=== PATIENT | male | born 1955 | race Caucasian/White ===

== ENCOUNTER 2019-01-26 12:08 | Inpatient (IN) | payer OTHER ==
[~2019-01-26] VITALS: Ht 180.3 cm; Wt 80.0 kg
[2019-01-26 12:12] VITALS: Ht 180.3 cm; Wt 80.0 kg
--- NOTE | 2019-01-26 12:15 | NUR ---
EKG IN PROGRESS
--- NOTE | 2019-01-26 12:15 | NUR ---
MD ROCA AT BEDSIDE PERFORMING MSE
--- NOTE | 2019-01-26 12:15 | NUR ---
PT BIB AMBULANCE FROM [facility] WITH C/O UNWITNESSED SEIZURE SURVEY CREW CHIEF, PER MEDICS PT WAS FOUND ON CEMENT FLOOR WITH ALOC, CIM ADMIN 2MG ATIVAN IVP PRIOR TO [facility] ARRIVAL, PER PT MEDICS PT PLACED ON 3L O2 NC S/P SECOND SEIZURE IN ROUTE, TONIC CLONIC LASTING APPROX 3O SEC., MEDICS ADMIN 2.5 MG VERSED INH AND ADMIN D10 D/T HYPOGLYCEMIA, PER MEDICS PT HAS HX SEIZURES, UPON ARRIVAL PT ALOC PT LOCALIZES TO PAIN WHEN CHECKING RECTAL TEMP, PT PUPILS SLUGGISH WITH ERYTHEMA NOTED TO BILATERAL EYES, NO SPEECH NOTED AT THIS TIME, LUNGS CTA, RESPS E/U, +PULSES TO BUE AND BLE, PT FEBRILE AND MEDICATED, SEE MEDICATION PER PROTOCOL, +INCONTINENCE CLOTHES SOILED WITH URINE, PT GOWNED PLACED ON FULL CM, NSR, SEIZURE PRECAUTIONS IN PLACE, [facility] OFFICER AT BEDSIDE
--- NOTE | 2019-01-26 12:16 | NUR ---
LAC NOTED TO BOTTOM INNER LIP, BLEEDING CONTROLLED, AIRWAY PATENT
--- NOTE | 2019-01-26 12:32 | NUR ---
LAB AT BEDSIDE
--- NOTE | 2019-01-26 12:45 | NUR ---
PT HAS FEVER OF 102.6 DR ASHLEY NOTIFIED. VERBAL ORDER FOR TYLENOL GIVEN. WILL MEDICATE
--- NOTE | 2019-01-26 13:01 | NUR ---
PORTABLE CXR AT BEDSIDE
--- NOTE | 2019-01-26 13:05 | NUR ---
PT ALOC GARBLED SPEECH, PT ORIENTED TO PERSON AND PLACE, WHEN ASKED TO BIODIESEL ENGINEERING MANAGER BUE, PT WAS NOTED PT UNABLE TO BIODIESEL ENGINEERING MANAGER LEFT HAND, PT UNABLE TO MOVE LLE, NO REFLEX RESPONSE TO LEFT FOOT
--- NOTE | 2019-01-26 13:05 | NUR ---
PT ALOC GARBLED SPEECH, PT ORIENTED TO PERSON AND PLACE, WHEN ASKED TO BAD CLOTH CHECKER BUE, PT WAS NOTED PT UNABLE TO BAD CLOTH CHECKER LEFT HAND, PT UNABLE TO MOVE LLE, +BABINSKI NOTED TO LEFT FOOT, ASHLEY MADE AWARE
[2019-01-26 13:06] LABS: PLATELET COUNT 174 x10^3mcL (130-400)
--- NOTE | 2019-01-26 13:07 | NUR ---
PT TAKEN TO CT VIA TRISH ACCOMPANIED BY GRISELDA LINO
[2019-01-26 13:11] LABS: BASOPHIL % 0 % (0-2); RED CELL DISTRIBUTION WIDTH 14.9 % (11.5-14.5)
--- NOTE | 2019-01-26 13:26 | NUR ---
MD ASHLEY AT BEDSIDE SPEAKING WITH PT, PER MD ASHLEY PT DENIES ANY HX STROKE AND CIM OFFICER STS PRISONERS "USUALLY WEAR A SPECIAL VEST IF THEY CAN'T WALK RIGHT LIKE FROM A STROKE AND HE DOESN'T HAVE ONE"
[2019-01-26 13:28] LABS: ALBUMIN 3.5 g/dL (3.4-5.0); ALKALINE PHOSPHATASE 84 U/L (46-116); ALT/SGPT 67 U/L (16-63); AST/SGOT 475 U/L (15-37); BILIRUBIN TOTAL 0.9 mg/dL (0.20-1.00); CALCIUM 8.5 mg/dL (8.5-10.1); CARBON DIOXIDE 24.9 mmol/L (21-32); CHLORIDE SERUM 105 mmol/L (98-107); CREATININE SERUM 1.9 mg/dL (0.7-1.3); GFR1 38 mL/min; GLUCOSE SERUM 118 mg/dL (74-106); POTASSIUM SERUM 5.4 mmol/L (3.5-5.1); SODIUM SERUM 140 mmol/L (136-145); TOTAL PROTEIN, SERUM 7.1 g/dL (6.4-8.2)
--- NOTE | 2019-01-26 13:59 | NUR ---
LAB AT BEDSIDE
--- NOTE | 2019-01-26 14:06 | NUR ---
LAB UNABLE TO DRAW BLOOD FOR BLOOD CULTURE, MD ASHLEY MADE AWARE, PER MD ASHLEY VERBAL ORDER ADMIN AX WITHOUT BLOOD CULTURES AT THIS TIME
--- NOTE | 2019-01-26 14:13 | NUR ---
VERBAL OKAY DR. ASHLEY TO START ROCEPHIN PRIOR TO BC DRAWN. LAB NOT ABLE TO PULL BLOOD, DR. ASHLEY MADE AWARE.
[2019-01-26 14:33] LABS: AMPHETAMINE QUAL UR NONE DETECTED (See below)
--- NOTE | 2019-01-26 14:49 | NUR ---
NEURO CONSULT COMP PLACED IN PT RM PER MD ORDER
--- NOTE | 2019-01-26 14:53 | NUR ---
PT AWAKE AND ALERT, PT GARBLED SPEECH AT THIS TIME, WHEN ASKED IF PT REMEMBERED WHAT HAPPENED HE STATED "I HAD A STROKE" I ASKED HIM "WHAT MAKES YOU THINK THAT IF YOU SAID YOU NEVER HAD ONE BEFORE" PT REPLIED "I FELT DIZZY" PT REPORTS BEGAN AROUND 1000 THIS AM, MD ASHLEY MADE AWARE
--- NOTE | 2019-01-26 14:55 | NUR ---
NEURO CONSULT IN PROGRESS
--- NOTE | 2019-01-26 14:56 | NUR ---
DURING NEURO CONSULT, PT ASKED TO MOVE LUE, PT LIFTED HIS RUE, PT ASKED TO MOVE LLE AND FLEX HIS LEFT FOOT, PT UNABLE TO DO THEY STATING "I CAN'T" MD ASHLEY MADE AWARE
--- NOTE | 2019-01-26 15:11 | NUR ---
PT NOTED TO BE MOVING LUE HOWEVER WHEN ASKED TO NEUROLOGY TEACHER LEFT HAND, PT UNABLE TO DO SO
--- NOTE | 2019-01-26 15:33 | NUR ---
PT REPORTS HX PNEMONIA, PT FEBRILE, MD ASHLEY MADE AWARE OF PT TEMP
--- NOTE | 2019-01-26 16:34 | NUR ---
VANCO INFUSING PER EMAR AND MD ORDER, VSS, NSR ON CM, CIM OFFICERS AT BEDSIDE
--- NOTE | 2019-01-26 17:42 | NUR ---
UPON ENTERING PT ASLEEP BUT [place], PT AAOX4, RESPS E/U, NSR ON CM. PT IN NAD, CIM OFFICERS AT BEDSIDE
[2019-01-26] MEDS ORDERED: [UNRECOGNIZED DRUG - CODE] (17:59)
[2019-01-26] MEDS ORDERED: FLOMAX0.4 MG PO (18:00)
[2019-01-26] MEDS ORDERED: COLACE100 MG PO (18:01)
[2019-01-26] MEDS ORDERED: COUMADIN1 MG (18:01)
[2019-01-26] MEDS ORDERED: REM15 PO (18:01)
[2019-01-26] MEDS ORDERED: KEPPRA500 MG PO (18:01)
[2019-01-26] MEDS ORDERED: VIS50 PO (18:02)
[2019-01-26] MEDS ORDERED: FLUOXETINE HYDR20 M2 PO (18:02)
[2019-01-26] MEDS ORDERED: [UNRECOGNIZED DRUG - CODE] SQ (18:03)
[2019-01-26 18:23] LABS: CHOLESTEROL/HDL RATIO 3.2
--- NOTE | 2019-01-26 18:41 | NUR ---
PT RESTING IN POSITION OF COMFORT RESPS E/U, VSS, NSR ON CM, CIM OFFICERS AT BEDSIDE
--- NOTE | 2019-01-26 19:27 | NUR ---
REPORT GIVEN TO ZAINAB RN, ICU, TO RESUME CARE OF PT UPON ADMISSION, SHE IS AWARE TO MONITOR RECTAL TEMP
[2019-01-26 19:47] VITALS: BP 139/69
--- NOTE | 2019-01-26 19:58 | NUR ---
PT TRANSFERRED TO ICU ACCOMPANIED BY NURSE, EMT AND GAURDS. NO S/S OF DISTRESS. RESP E/U. PT CONNECTED TO MONITOR DURIN TRANSFER. IV SITES PATENT, NO S/S OF INFILTRATION.
--- NOTE | 2019-01-26 20:04 | NUR ---
PT TRANSFERRED FROM ER VIA GURNEY ACCOMPANIED BY RN AND EMT. PT TRANSFERRED TO ICU BED WITH FULL ASSIST. PT LETHARGIC BUT AROUSABLE. PT ORIENTED TO PERSON, BIRTHDATE, AND TIME). PT VERBALLY AND PHYSICALLY AGGRESSIVE WHEN AWAKE. PERRLA NOTED, PUPILS 4MM SLUGGISH CONOR. NO SEIZURE ACTIVITY AT THIS TIME. SEIZURE PRECAUTIONS IN PLACE. EENT FREE OF DISCHARGE. RESPS E/U ON ROOM AIR. LUNG SOUNDS CTA. CHEST RISE EQUAL AND SYMMETRICAL. POTATO BUCKER IN PLACE SHOWING NSR WITH HR 83, BP 136/66 MAP 89. CHEST WALL STABLE. DENIES ANY CP, SYNCOPE, OR DIZZINESS. PULSES PALPABLE X4 EXTREMITIES BUT WEAK. NO EDEMA NOTED. CAP REFILL < 3 SECS. IV TO LAC INTACT AND PATENT. IVF NS INFUSING @ 100ML/HR. GEN WEAKNESS NOTED. TURNED AND REPOSTIONED Q2H FOR PRESSURE RELIEF. ABD ROUND, SOFT, NONTENDER TO TOUCH. BOWEL SOUNDS ACTIVE. PTS INCONTINENT. GOOD DIMITRI CARE PROVIDED. NO SCROTAL EDEMA OR BLEEDING NOTED. BLE SCATTERED ABRASION, MARQUISE. LOWER LIP ABRASION, SPECIAL EDUCATION CLASSROOM AIDE. PT FROM [facility]. PT VERBALLY AND PHYSICALLY AGGRESSIVE WHEN AWAKE. 2 CIM GUARDS AT BEDSIDE. HOB KEPT ELEVATED. FALL PRECAUTIONS APPLIED AND MAINTAINED. WILL CONTINUE TO MONITOR.
[2019-01-26 21:13] VITALS: BP 136/66
--- NOTE | 2019-01-26 21:30 | NUR ---
ATTEMPTED TO GIVE PT VELTASSA ORAL MED, PT BECAME COMBATIVE ATTEMPTING TO HIT AND VERBALLY AGGRESSIVE STATING "GET THE F OUT AND LEAVE ME THE F ALONE." 2 CIM GUARDS AT BEDSIDE, ASSISTED TO HOLD PT BUT PT BECAME MORE ANGRY. DR MORENO WILL BE CALLED AND MADE AWARE.
--- NOTE | 2019-01-26 22:20 | NUR ---
DR MORENO MADE AWARE PT REFUSED TO TAKE VELTASSA PO FOR K+ 5.4. NO NEW ORDERS GIVEN.
--- NOTE | 2019-01-26 22:36 | NUR ---
REPORTED TO DR FRANK REGARDING TRENDING UP TROP LEVEL 2.451, DR FRANK STATES CONTINUE WITH SAME ORDERS OF LOVENOX, METOPROLOL AND EKG IN AM.
[2019-01-26 23:31] VITALS: BP 123/69
[2019-01-27] VITALS (10 sets, daily range): BP systolic 109–148; BP diastolic 49–82
--- NOTE | 2019-01-27 00:02 | NUR ---
PT SOILED WITH URINE AND LOOSE STOOL. URINE NOTED ALL OVER FLOOR, HOUSEKEEPING CALLED. F/C INSERTED AT THIS TIME. 16 FR F/C INSERTED AT EASE, 800ML BLOOD TINGED URINE NOTED. FLEXI SEAL PLACED AT THIS TIME. PT AGGRESSIVE WHEN CLEANING BED AND TURNING. PT SWINGING AT NURSES AND CURSING AT EVERYONE. 2 CIM GUARDS AND 2 NURSES AT BEDSIDE HOLDING EACH LIMB. ROSSY CHARGE NURSE ASSISTED TO INSERT F/C AND FLEXISEAL.
--- NOTE | 2019-01-27 04:30 | NUR ---
OLGA FAIR TECH AT BEDSIDE ATTEMPTED TO DRAW LABS. PT BECAME COMBATIVE AND AGGRESSIVE, ATTEMPTED TO HOLD WITH 3 RNS PT BECAME MORE COMBATIVE, YELLING AND ATTEMPTING TO HIT STAFF AND CIM GUARDS.
--- NOTE | 2019-01-27 05:15 | NUR ---
ATTEMPTED TO CHECK GLUCOSE, PT BECAME VERY COMBATIVE AND AGGRESSIVE. ATIVAN IVP GIVEN. WILL CONTINUE TO MONITOR.
--- NOTE | 2019-01-27 05:35 | NUR ---
PT CALM AND SLEEPING. BLOOD GLUCOSE CHECKED AT THIS TIME, 87. 2 CIM GUARDS AT BEDSIDE.
--- NOTE | 2019-01-27 06:00 | NUR ---
24 URINE COLLECTION INITIATED AT THIS TIME. URINE BUCKET PLACED IN ICE. WILL ENDORSE TO ONCOMING RN.
--- NOTE | 2019-01-27 06:29 | NUR ---
CALLED DR MORENO, MADE AWARE PT REFUSED LAB DRAW IN AM. PT BECAME AGGRESSIVE AND COMBATIVE AND ATTEMPTED WITH ATIVAN IVP, PT STILL AGGRESSIVE. DR MORENO MADE AWARE OF DR RUBY'S ORDERS UNDER CONSULTATION PROGRESS NOTE. DR MORENO STATES TO FOLLOW ORDERS AND CHANGE DIET TO NPO UNTIL SWALLOW EVAL IS DONE BY SPEECH THERAPIST AND ORDER KEPPRA 500 MG IV BID. TELEPHONE ORDER READ BACK. ORDER NOTED AND CARRIED OUT.
--- NOTE | 2019-01-27 06:43 | NUR ---
DR FRANK (TRAVEL ADMINISTRATOR) CALLED AND MADE AWARE PT REFUSED AM LABS AND PT VERY AGGRESSIVE AND COMBATITIVE. UPDATED ON PTS CURRENT VITAL SIGNS. MADE AWARE PTS ON LOVENOX BID AND PT HAS BLEEDING FROM [facility]. TELEPHONE ORDER GIVEN TO HOLD LOVENOX AT THIS TIME. ORDER NOTED AND CARRIED OUT.
--- NOTE | 2019-01-27 07:00 | NUR ---
RECEIVED REPORT FROM ZAINAB VILLALOBOS. ALL QUESTIONS ANSWERED AND ADDRESSED. ASSUMING CARE OF PT.
--- NOTE | 2019-01-27 07:30 | NUR ---
UPON ASSESSING PT, PT COMBATIVE AND REFUSING CARE. PT STATING "GET OFF OF ME. DON'T TOUCH ME." EDUCATED PT ON THE NEED FOR ASSESSMENT AND THE IMPORTANCE OF CARE. PT STILL REFUSING AND SWUNG RIGHT ARM AT MY FACE. 2 GUILHERME AT BEDSIDE. WILL ENDORSE TO DR. MORENO. WILL CONT TO MONITOR.
--- NOTE | 2019-01-27 07:48 | NUR ---
PT TACHYCARDIC AND OXYGEN DESATTING INTO THE 70% AND HAVING A SEIZURE AT THIS TIME. DURATION OF SEIZURE WAS 45 SECONDS. ASSESSED PT'S NEURO STATUS AND WAS ABLE TO STATE HIS FIRST AND LAST NAME AND DATE OF . HOWEVER, WHEN ASKED WHAT YEAR IT IS, HE STATED IT WAS 1915. ALSO WHEN ASKED IF HE KNEW WHO THE PRESIDENT WAS, HE NODDED YES BUT STATED THAT IT WAS [place]. PT AAOX2. REMAINS COMBATIVE AND REFUSING CARE AT THIS TIME.
--- NOTE | 2019-01-27 07:50 | NUR ---
2MG ATIVAN IVP GIVEN AT THIS TIME FOR PT'S SEIZURE. WILL CONT TO MONITOR.
--- NOTE | 2019-01-27 08:12 | NUR ---
ECHOCARDIOGRAM PENDIG-COMBATIVE
--- NOTE | 2019-01-27 08:39 | NUR ---
RAZIA FROM RADIOLOGY ON UNIT TO ASSESS PT TO SEE IF ABLE TO GO TO CT. HOWEVER, PT REFUSED. RAZIA STATED THAT THEY WILL KEEP TRYING THROUGHOUT THE DAY. WILL ENDORSE TO DR. MORENO.
--- NOTE | 2019-01-27 08:54 | NUR ---
DR. HO AT BEDSIDE TO SEE AND ASSESS PT. DR. HO MADE AWARE PT COMBATIVE AND REFUSING CARE. NEW ORDERS OBTAINED FOR ZYPREXA 2.5 MG IM BID AND CHANGE IVF TO D5NS AT SAME RATE. PRIMARY RN MADE AWARE. ORDERS READBACK AND CONFIMRED.
--- NOTE | 2019-01-27 09:16 | NUR ---
PT REFUSED BLOOD DRAW THIS TIME. WILL NOTIFY DR. MORENO, PRIMARY RN MADE AWARE.
[2019-01-27 09:28] LABS: AMPHETAMINE QUAL UR NONE DETECTED (See below)
--- NOTE | 2019-01-27 09:30 | NUR ---
DR. MORENO AT BEDSIDE ASSESSING PT. NURSING UPDATES. COMMUNICATED WITH DR. MORENO THAT PT HAS BEEN REFUSING CARE AND HAS BEEN COMBATIVE TOWARDS HEALTHCARE PROVIDERS AND NURSING STAFF. DR. MORENO STATES THAT "THAT'S OKAY." ORDERS TO BE RECEIVED AT THIS TIME.
--- NOTE | 2019-01-27 09:42 | NUR ---
PT REFUSING 9AM MEDICATIONS AT THIS TIME. DR. MORENO STILL ON UNIT AND MADE AWARE THAT PT REFUSED. HE STATED "THAT'S OKAY." WILL CONT TO MONITOR.
[2019-01-27 10:17] LABS: microscopic required? YES; urine erythrocyte 3+ (NEGATIVE)
--- NOTE | 2019-01-27 10:42 | NUR ---
ZYPREXA NOT GIVEN AT THIS TIME IT IS NOT INDICATED. PT SLEEPING AND VERY LETHARGIC. MEDICATION WASTED AND WITNESSED BY COURTNEY GALLARDO RN.
--- NOTE | 2019-01-27 11:15 | NUR ---
@1105: PT NOTED TO BE HAVING 2ND SEIZURE AT THIS TIME. LASTED 15 SECONDS. REORIENTED PT, REMAINS LETHARGIC, ORIENTED TO SELF AND ONLY. VSS. 2MG ATIVAN IVP GIVEN AT THIS TIME, SEE EMAR FOR DETAILS. WILL CONT TO MONITOR.
--- NOTE | 2019-01-27 12:48 | NUR ---
PT NOTED TO HAVE 3RD SEIZURE AT THIS TIME. UNABLE TO GIVE ATIVAN DUE TO IT BEING TOO EARLY TO GIVE SINCE PRN 2HRS. VSS AT THIS TIME. CHARGE NURSE AWARE.
--- NOTE | 2019-01-27 13:34 | NUR ---
@1331: PT HAVING 4TH TONIC-CLONIC SEIZURE AT THIS TIME. PT REMAINS LETHARGIC, AAOX2 TO NAME AND ONLY. REORIENTED AT THIS TIME. VSS. ECHO RESUMING AT BEDSIDE. 2 MG ATIVAN IVP GIVEN, SEE EMAR FOR DETAILS. WILL CONT TO CLOSELY MONITOR
--- NOTE | 2019-01-27 13:34 | NUR ---
PT HAD 5TH TONIC-CLONIC SEIZURE AT THIS TIME LASTING 8 SECONDS. VSS. 2MG ATIVAN IVP GIVEN AT THIS TIME, SEE EMAR FOR DETAILS. VSS. PT AAOX2 STILL TO NAME AND ONLY. REORIENTED AT THIS TIME. REMAINS LETHARGIC. ECHO CONTINUING AT BEDSIDE. WILL CONT TO CLOSELY MONITOR.
--- NOTE | 2019-01-27 14:44 | NUR ---
IN PT'S ROOM AT THIS TIME. UPON ADMINISTERING A MEDICATION, NOTICED PT BECOMING UNRESPONSIVE AND STARING AT WALL. PT THEN HAVING A TONIC-CLONIC SEIZURE, MOSTLY TO THE LEFT SIDE OF THE BODY. SEIZURE LASTED 1 MINUTE LONG. PT PLACED ON 4L NASAL CANNULA DUE TO LABORED BREATHING. O2 SATURATION OF 80%, HR = 59, BP = 124/64 (84), RR = 16. AWAITING DR. HO'S ARRIVAL ON UNIT.
--- NOTE | 2019-01-27 14:59 | NUR ---
DR. HO AT BEDSIDE ASSESSING PT. NURSING UPDATES. STATED THAT PT NEEDS TO BE INTUBATED. 2 RT, CHARGE NURSE, AND I AT BEDSIDE PREPARING FOR EMERGENCY INTUABTION.
--- NOTE | 2019-01-27 15:10 | NUR ---
1501: 100MCG PROPOFOL IVP GIVEN AT THIS TIME. 1502: 60MG SUCC IVP GIVEN AT THIS TIME. 1503: PT INTUABTED. 8.0 ETT @ 26CM LL. VSS. O2 SAT OF 100%. ETT TO VENT: 15 RATE, 400 VT, 100% FIO2, 5 PEEP. BREATHING E/U. COARSE CRACKLES AUSCULTATED TO BUL, DIM TO BLL. NO S/S OF RESP DISTRESS AT THIS TIME. STAT CXR ORDERED AT THIS TIME. PER SAAD QUACH IN AN HOUR.
--- NOTE | 2019-01-27 15:30 | NUR ---
CHARGE NURSE AND I AT BEDSIDE WITH 2 GAURDS. PLACING B/E SOFT WRIST RESTRAINTS FOR PT'S SAFETY AND PREVENTION OF REMOVAL OF TUBES/LINES/EQUIPMENT - TWO-FINGER WIDTH NOTED UNDER RESTRAINT, PT ABLE TO MOVE FINGERS AND HANDS, NO CYANOSIS PRESENT. GAURDS REMOVING B/E HANDCUFFS AT THIS TIME. INSERTING OGT AT THIS TIME. OGT MEASURED, EPIGASTRIC AUSCULTATION HEARD, MEASURED AT LIP. CXR ORDERED TO CONFIRM PLACEMENT. WILL CONT TO MONITOR.
--- NOTE | 2019-01-27 15:48 | NUR ---
PER DR. HO, PROPOFOL TO BE INITIATED FOR SEDATION PT IS RESTLESS. PROPOFOL INTITATED @ 5 MCG/KG/MIN.
--- NOTE | 2019-01-27 15:55 | NUR ---
PT RESTLESS AND BITING TUBE. RSS = 1. PROPOFOL TITRATED TO 10 MCG/KG/MIN.
--- NOTE | 2019-01-27 16:00 | NUR ---
RSS = 1. PROPOFOL TITRATED TO 15 MCG/KG/MIN.
--- NOTE | 2019-01-27 16:05 | NUR ---
RSS = 1. PROPOFOL TITRATED TO 20 MCG/KG/MIN.
--- NOTE | 2019-01-27 16:10 | NUR ---
RSS = 1. PROPOFOL TITRATED TO 30 MCG/KG/MIN.
--- NOTE | 2019-01-27 16:15 | NUR ---
PT RESTLESS. RSS = 1. PROPOFOL TITRATED TO 25 MCG/KG/MIN
--- NOTE | 2019-01-27 16:20 | NUR ---
RSS = 1. PROPOFOL TITRATED TO 35 MCG/KG/MIN.
--- NOTE | 2019-01-27 17:00 | NUR ---
ATTEMPTING TO INSERT IV FOR MAINTENANCE FLUIDS AND KEPPRA IV MEDICATION. HOWEVER, UNSUCCESSFUL. WILL ASK ANOTHER RN TO ATTEMPT TO INSERT.
--- NOTE | 2019-01-27 17:08 | NUR ---
1630 ACCUCHECK @ 1707, 1ST READING = 58. 2ND READING = 48. DEXTROSE 50% - WATER SYRINGE IVP GIVEN AT THIS TIME.
--- NOTE | 2019-01-27 17:15 | NUR ---
NY VILLALOBOS ATTEMPTING TO INSERT IV. 2 UNSUCCESSFUL ATTEMPTS. WILL ASK ER NURSES TO ATTEMPT AT THIS TIME.
--- NOTE | 2019-01-27 17:50 | NUR ---
REPEAT ACCKRYSTAL, BS OF 147.
--- NOTE | 2019-01-27 18:00 | NUR ---
SHASHI RAMOS RN IN PT'S ROOM TO INSERT IV. SUCCESSFUL IV TO LEFT EJ INTACT, PORT PATENT, POSITIONAL, DRESSING CDI. 500 MG KEPPRA IV INITIATED AT THIS TIME.
--- NOTE | 2019-01-27 18:25 | NUR ---
US VENOUS BEING DONE AT BEDSIDE AT THIS TIME.
--- NOTE | 2019-01-27 19:07 | NUR ---
REPORT GIVEN TO ZAINAB VILLALOBOS. ALL QUESTIONS ANSWERED AND ADDRESSED. RN TO ASSUME CARE AT THIS TIME.
--- NOTE | 2019-01-27 20:00 | NUR ---
GLUCERNA TF INITIATED AT 10ML/HR, FWF 50ML Q4H VIA OGT.
--- NOTE | 2019-01-27 20:54 | NUR ---
PT BITING ON ETT, HIGH PRESSURING. RT AT BEDSIDE PLACED BITE BLOCK AT THIS TIME.
--- NOTE | 2019-01-27 21:45 | NUR ---
CALLED CT AND MADE AWARE PT HAS ORDER FOR CT HEAD FROM MORNING, CHRISTIAN RADIOLOGIST STATES HE WILL CALL WHEN READY.
--- NOTE | 2019-01-27 23:50 | NUR ---
PT REPOSITIONED AT THIS TIME, PT BECAME RESTLESS AND AGITATED, TITRATED PROPOFOL TO 38 MCG/KG/MIN.
[2019-01-28] VITALS (16 sets, daily range): BP systolic 128–154; BP diastolic 74–83
--- NOTE | 2019-01-28 | NUR ---
TF INCREASED TO 20ML/HR, GRV=0
--- NOTE | 2019-01-28 02:00 | NUR ---
CALLED BACK CT, CHRISTIAN RADIOLOGIST STATES ER IS BUSY AT THIS TIME AND WILL CALL BACK WHEN READY.
--- NOTE | 2019-01-28 02:10 | NUR ---
PTS HR 48-50, PROPOFOL TITRATED TO 30 MCG/KG/MIN.
[2019-01-28 05:22] LABS: BASOPHIL % 0.2 % (0-2); PLATELET COUNT 141 x10^3mcL (130-400)
[2019-01-28 05:25] LABS: RED CELL DISTRIBUTION WIDTH 15.5 % (11.5-14.5)
[2019-01-28 05:49] LABS: BILIRUBIN TOTAL 0.48 mg/dL (0.20-1.00); CARBON DIOXIDE 29.3 mmol/L (21-32); CREATININE SERUM 1.6 mg/dL (0.7-1.3); PHOSPHOROUS 2.5 mg/dL (2.5-4.9)
[2019-01-28 05:50] LABS: ALBUMIN 2.6 g/dL (3.4-5.0); TOTAL PROTEIN, SERUM 6.1 g/dL (6.4-8.2)
--- NOTE | 2019-01-28 06:00 | NUR ---
24 HR URINE COLLECTION COMPLETE, SENT TO LAB
[2019-01-28 06:05] LABS: CHOLESTEROL/HDL RATIO 3.4
[2019-01-28 08:53] LABS: MAGNESIUM 24HR URINE 163.8 mg/24HR (12-192)
--- NOTE | 2019-01-28 09:20 | NUR ---
DR. HO AT BEDSIDE ASSESSING PT. NURSING UPDATES. DC ZYPREXA IT IS NOT NEEDED AT THIS TIME. NO OTHER NEW ORDERS.
--- NOTE | 2019-01-28 09:30 | NUR ---
DR. MORENO AT BEDSIDE. NURSING UPDATES. NO NEW ORDERS AT THIS TIME.
--- NOTE | 2019-01-28 09:45 | NUR ---
CALLED PHARMACY FOR [facility] MEDICATION AND STATED THAT THEY "ARE BACKED UP" AND WILL SEND MEDICATION SOON.
--- NOTE | 2019-01-28 10:00 | NUR ---
CT CALLED AT THIS TIME TO COME TAKE PT TO GET TEST DONE
--- NOTE | 2019-01-28 10:25 | NUR ---
ROSA ISELA RN, ASHLEY RT, AND CT TEAM AT BEDSIDE. PT TAKEN TO CT AT THIS TIME WITH 2 GUILHERME.
--- NOTE | 2019-01-28 10:40 | NUR ---
PT BACK FROM CT AT THIS TIME. NO COMPLICATIONS.
--- NOTE | 2019-01-28 12:04 | NUR ---
ASHLEY MENON AT BEDSIDE. O2 SAT OF 100%. FIO2 CHANGED TO 40% AT THIS TIME.
--- NOTE | 2019-01-28 13:19 | NUR ---
CALLED TELE NEURO AT THIS TIME.
--- NOTE | 2019-01-28 14:02 | NUR ---
NEUROLOGIST CALLED AT THIS TIME. STATUS OF PT GIVEN TO DOCTOR. HE STATES THAT PT IS NEEDED TO BE TRANSFERRED TO A HIGHER LEVEL OF CARE STAT AND CONTINUOUS EEG MONITORING WILL BE NEEDED. NEUROLOGIST WILL CALL BACK AND VIEW PT VIA TELE WHEN HE GETS A CHANCE. WILL ENDORSE AND CONT TO MONITOR.
--- NOTE | 2019-01-28 14:19 | NUR ---
ANNA FROM CASE MANAGEMENT CALLED AT THIS TIME AND ALL UPDATES ON DRIPS GIVEN AT THIS TIME. PER ANNA SHE WILL CALL BACK WITH UPDATES.
--- NOTE | 2019-01-28 14:24 | NUR ---
TELE NEURO DONE AT THIS TIME, SPOKE WITH DR DEVORAH ELLIS, HE RECOMMENDS THAT PATIENT BE TRANSFERRED TO HAVE CONTINUOUS EEG MONITORING. NO OTHER RECCOMMENDATIONS. WILL RELAY MESSAGE TO PRIMARY RN. PT STABLE AT THIS TIME. WILL CONTINUE TO MONITOR.
--- NOTE | 2019-01-28 15:21 | NUR ---
PATIENT TO BE TRANSFERRED AT 1830, PER ANNA CASE MANAGEMENT. TRANSFER TO [facility] IN OCEAN SIDE, TO ICU WEST ACCEPTED BY DR NAGEL. CONTACT FOR REPORT: [phone]. PRIMARY RN AWARE. GUARDS ALSO AWARE AT THIS TIME. DR MORENO ALSO AWARE, AND PER DR MORENO HE WILL PUT IN D/ C ORDERS
--- NOTE | 2019-01-28 15:40 | NUR ---
PT RESTLESS AND PUSHING OUT BITE BLOCK WITH TONGUE. PROPOFOL TITRATED TO 30 MCG/KG/MIN.
--- NOTE | 2019-01-28 16:02 | NUR ---
TUBE FEEDINGS OFF AT THIS TIME PER RAZIA [facility] ICU NURSE
--- NOTE | 2019-01-28 16:02 | NUR ---
REPORT GIVEN TO RAZIA VILLALOBOS FROM [facility]. ALL QUESTIONS ANSWERED AND ADDRESSED. ESTIMATED TIME OF ARRIVAL TO BE 8PM. ASSUMING CARE UNTIL THEN.
[2019-01-28] MEDS ORDERED: COLACE100 MG PO (17:05)
[2019-01-28] MEDS ORDERED: COUMADIN1 MG (17:05)
[2019-01-28] MEDS ORDERED: FLUOXETINE HYDR20 M2 PO (17:05)
[2019-01-28] MEDS ORDERED: KEPPRA500 MG PO (17:06)
--- NOTE | 2019-01-28 17:50 | NUR ---
[facility] CALLED AND STATED THAT ETA WILL BE 9PM.
--- NOTE | 2019-01-28 17:58 | NUR ---
[facility] ICU CALLED AT THIS TIME FOR UPDATES ON PT'S ETA
--- NOTE | 2019-01-28 19:30 | NUR ---
RECEIVED REPORT FROM ROBERTO VILLALOBOS. PT REMAINS VENTED, TEN. SETTINGS. AFEBRILE AND VITAL SIGNS STABLE. TO BE TRANSFERRED TO [facility], AWAITING [facility]. OGT FEEDING ON HOLD AT THIS TIME. IVF, D5NS AT 100ML/HR , INFUSING VIA LT EJ, SITE CLEAR. PROPOFOL AT 30MCG/KG /MIN INFUSING. RESTLESS AT TIMES. BILAT. SOFT WRIST RESTRAINTS IN PLACE FOR SAFETY, TO PREVENT PT FROM PULLING OUT TUBES. MARTINEZ CATH INTACT AND DRAINING MICAH COLOR URINE. TURNED AND REPOSITIONED FOR COMFORT. GUARDS AT THE BEDSIDE. WILL CONTINUE TO MONITOR.
--- NOTE | 2019-01-28 20:35 | NUR ---
PT RESTLESS AND PUSHING OUT BITE BLOCK WITH TONGUE, PROPOFOL TITRATED TO 35MCG/KG/MIN .
--- NOTE | 2019-01-28 20:48 | NUR ---
RESTLESS, ATIVAN 2MG IV GIVEN. WILL CONTINUE TO MONITOR.
--- NOTE | 2019-01-28 21:23 | NUR ---
[facility] TRANSPORT HERE TO POWER AND RECOVERY SHIFT ENGINEER PT. PT BEING TRANSFERRED TO [facility] ICU FOR HIGHER LEVEL OF CARE.
--- NOTE | 2019-01-28 21:37 | NUR ---
TO [facility] VIA [facility] TRANSFORT.
== END 2019-01-28 21:35 | disposition short-term general hospital (02) | DRG 871 ==
LOC: ED 12:08 → IC 17:14
PROVIDERS: Internal Medicine; Internal Medicine Cardiovascular Disease; Student in an Organized Health Care Education/Training Program; ADMIT Internal Medicine
PROC: 0BH17EZ Insertion of Endotracheal Airway into Trachea, Via Natural or Artificial Opening (ICD-10-PCS; principal; 2019-01-27)
PROC: 5A1945Z Respiratory Ventilation, 24-96 Consecutive Hours (ICD-10-PCS; 2019-01-27)
DX: A41.9 Sepsis, unspecified organism (principal); J69.0 Pneumonitis due to inhalation of food and vomit; I61.1 Nontraumatic intracerebral hemorrhage in hemisphere, cortical; I21.4 Non-ST elevation (NSTEMI) myocardial infarction; J96.00 Acute respiratory failure, unspecified whether with hypoxia or hypercapnia; N17.0 Acute kidney failure with tubular necrosis; R65.21 Severe sepsis with septic shock; M62.82 Rhabdomyolysis; G40.909 Epilepsy, unspecified, not intractable, without status epilepticus; E11.649 Type 2 diabetes mellitus with hypoglycemia without coma; E11.65 Type 2 diabetes mellitus with hyperglycemia; E87.5 Hyperkalemia; I11.9 Hypertensive heart disease without heart failure; I25.10 Atherosclerotic heart disease of native coronary artery without angina pectoris; Z68.27 Body mass index [BMI] 27.0-27.9, adult; Z79.84 Long term (current) use of oral hypoglycemic drugs; Z91.14 Patient's other noncompliance with medication regimen; Z79.01 Long term (current) use of anticoagulants; Z79.82 Long term (current) use of aspirin; Z79.4 Long term (current) use of insulin
CPT/HCPCS: 31500; 36600; 82962; 83880; 87804; A4628; G0378; G0480; J0456; J0696; J1953; J2060; J2543; J2704; J3370; J3490; J7030; J7042; J7050; J7060; J7620; Q0092; Q0177